=== PATIENT | female | born 1970 | race Caucasian/White ===

== ENCOUNTER 2019-08-18 13:27 | Emergency (ER) | payer MEDICAID, OTHER ==
[~2019-08-18] VITALS: Ht 167.6 cm; Wt 151.0 kg
[2019-08-18] MEDS ORDERED: METO50TA17 PO (14:37)
[2019-08-18] MEDS ORDERED: METO-467 PO (14:37)
[2019-08-18] MEDS ORDERED: PARO10TA85 PO (14:37)
[2019-08-18] MEDS ORDERED: LISI-600 PO (14:37)
[2019-08-18 14:45] VITALS: BP 136/89
== END 2019-08-18 14:46 | disposition home or self-care (01) ==
LOC: ER 13:31
DX: I10 Essential (primary) hypertension (principal); F32.9 Major depressive disorder, single episode, unspecified; Z76.0 Encounter for issue of repeat prescription; Z79.899 Other long term (current) drug therapy
CPT/HCPCS: 99283

== ENCOUNTER 2019-08-29 09:44 | Emergency (ER) | payer MEDICAID, OTHER ==
[~2019-08-29] VITALS: Ht 167.6 cm; Wt 150.0 kg
[~2019-08-29 09:44] MED LIST: LISI-600 PO; METO-467 PO; METO50TA17 PO; PARO10TA85 PO
[2019-08-29] MEDS ORDERED: BENZ-16 PO (11:36)
[2019-08-29] MEDS ORDERED: ONDA4TAB6 PO (11:36)
[2019-08-29] MEDS ORDERED: ALBU8.5H8 IH (11:36)
[2019-08-29] MEDS ORDERED: TAM75C PO (11:36)
[2019-08-29 12:14] VITALS: BP 138/73
== END 2019-08-29 11:54 | disposition home or self-care (01) ==
LOC: ER 09:45
DX: B34.9 Viral infection, unspecified (principal); R05 Cough; R51 Headache; J02.9 Acute pharyngitis, unspecified; M79.10 Myalgia, unspecified site; R53.83 Other fatigue; I10 Essential (primary) hypertension; F32.9 Major depressive disorder, single episode, unspecified; Z79.899 Other long term (current) drug therapy
CPT/HCPCS: 99283

== ENCOUNTER 2019-09-14 14:45 | Emergency (ER) | payer MEDICAID ==
[~2019-09-14] VITALS: Ht 167.6 cm; Wt 145.0 kg
[~2019-09-14 14:45] MED LIST changes: +ALBU8.5H8 IH; +BENZ-16 PO; +ONDA4TAB6 PO
[2019-09-14 15:50] LABS: BASOPHILS % (AUTO) 0.5 % (0-1); EOSINOPHILS # (AUTO) 0.1 X10'3 (0-0.9); EOSINOPHILS % (AUTO) 1.5 % (0-6); HEMATOCRIT 42.3 % (35.0-45.0); HEMOGLOBIN 14.6 g/dl (12.0-16.0); LYMPHOCYTES # (AUTO) 1.7 X10'3 (1.1-4.8); LYMPHOCYTES % (AUTO) 17.3 % (21-51); MEAN CORPUSCULAR HEMOGLOBIN 30.4 PG (27.0-31.0); MEAN CORPUSCULAR HGB CONC 34.5 g/dL (33.0-36.5); MEAN CORPUSCULAR VOLUME 88.3 FL (78-98); MEAN PLATELET VOLUME 7.5 FL (7.4-10.4); MONOCYTES # (AUTO) 0.8 X10'3 (0-0.9); MONOCYTES % (AUTO) 8.3 % (2-12); NEUTROPHILS # (AUTO) 7.2 X10'3 (1.8-7.7); NEUTROPHILS % (AUTO) 72.4 % (42-75); PLATELET COUNT 328 X10'3 (140-440); RED BLOOD COUNT 4.79 X10'6 (4.20-5.60); RED CELL DISTRIBUTION WIDTH 13.1 % (11.5-14.5); WHITE BLOOD COUNT 9.9 X10'3 (4.5-11.0)
[2019-09-14 16:04] LABS: ALANINE AMINOTRANSFERASE 32 U/L (12-78); ALBUMIN 3.6 G/DL (3.4-5.0); ALBUMIN/GLOBULIN RATIO 0.8 (1.1-1.5); ALKALINE PHOSPHATASE 70 IU/L (46-116); ANION GAP 7 (8-16); ASPARTATE AMINO TRANSFERASE 24 U/L (10-37); BILIRUBIN,TOTAL 1.3 MG/DL (0.1-1.0); BLOOD UREA NITROGEN 22 MG/DL (7-18); BUN/CREATININE RATIO 18.2 (6.6-38.0); CALCIUM 9.2 MG/DL (8.5-10.1); CHLORIDE 107 MMOL/L (99-107); CREATININE 1.21 MG/DL (0.40-0.90); GLUCOSE 131 MG/DL (70-104); SODIUM 142 MMOL/L (135-145); TOTAL CARBON DIOXIDE 27.7 MMOL/L (24-32); TOTAL PROTEIN 7.9 G/DL (6.4-8.2); eGFR 47 ML/MIN
[2019-09-14] MEDS ORDERED: normal saline 1000ML IV soln IVB ONE (16:50)
[2019-09-14 17:04] LABS: PARTIAL THROMBOPLASTIN TIME 25 SECONDS (22-32)
[2019-09-14 17:39] VITALS: BP 119/41
[2019-09-14] MEDS ORDERED: METO50TA17 PO (19:44)
[2019-09-14] MEDS ORDERED: LISI-600 PO (19:44)
[2019-09-14] MEDS ORDERED: PARO-62 PO (19:44)
== END 2019-09-14 20:05 | disposition home or self-care (01) ==
LOC: ER 14:45
DX: E86.0 Dehydration (principal); R42 Dizziness and giddiness; N17.9 Acute kidney failure, unspecified; I10 Essential (primary) hypertension; Z79.899 Other long term (current) drug therapy
CPT/HCPCS: 36415; 71045; 80053; 84484; 85025; 85610; 85730; 93005; 96360; 99285; J7030

== ENCOUNTER 2019-09-19 11:56 | Emergency (ER) | payer MEDICAID ==
[~2019-09-19] VITALS: Ht 167.6 cm; Wt 147.4 kg
[~2019-09-19 11:56] MED LIST changes: -BENZ-16 PO; -ONDA4TAB6 PO; +PARO-62 PO
[2019-09-19 12:10] VITALS: BP 150/81
--- NOTE | 2019-09-19 14:43 | NUR ---
PT GIVEN SPECIMEN CUP, AMBULATORY TO BATHROOM WITH STEADY GAIT TO PROVIDE SAMPLE PER ORDERS.
[2019-09-19 14:59] LABS: CLARITY,URINE CLOUDY (Clear); COLOR,URINE YELLOW (Yellow); GLUCOSE, URINE NEGATIVE (Neg); KETONES,URINE NEGATIVE (Neg); LEUKOCYTE ESTERASE ,URINE NEGATIVE (Neg); NITRITES, URINE NEGATIVE (Neg); OCCULT BLOOD,URINE NEGATIVE (Neg); PH,URINE 6.5 (4.8-8.0); PROTEIN,URINE NEGATIVE (Neg); URINE HCG NEGATIVE (NEG)
[2019-09-19 15:13] LABS: UA COLLECTION TYPE CLN CATCH MIDSTREAM
[2019-09-19 15:15] LABS: BACTERIA,URINE 1+ /HPF (Neg); MUCUS STRANDS MODERATE /LPF (Neg); RBC,URINE NONE SEEN /HPF (0-2); SQUAMOUS EPITHELIAL CELL,UR MODERATE /LPF (FEW); WBC,URINE 0-4 /HPF (0-4)
[2019-09-19 15:22] LABS: BASOPHILS % (AUTO) 0.5 % (0-1); EOSINOPHILS # (AUTO) 0.1 X10'3 (0-0.9); EOSINOPHILS % (AUTO) 1.4 % (0-6); HEMATOCRIT 41.1 % (35.0-45.0); HEMOGLOBIN 14.3 g/dl (12.0-16.0); LYMPHOCYTES # (AUTO) 1.9 X10'3 (1.1-4.8); LYMPHOCYTES % (AUTO) 24.6 % (21-51); MEAN CORPUSCULAR HEMOGLOBIN 30.8 PG (27.0-31.0); MEAN CORPUSCULAR HGB CONC 34.8 g/dL (33.0-36.5); MEAN CORPUSCULAR VOLUME 88.4 FL (78-98); MEAN PLATELET VOLUME 7.6 FL (7.4-10.4); MONOCYTES # (AUTO) 0.7 X10'3 (0-0.9); MONOCYTES % (AUTO) 8.5 % (2-12); PLATELET COUNT 287 X10'3 (140-440); RED BLOOD COUNT 4.65 X10'6 (4.20-5.60); RED CELL DISTRIBUTION WIDTH 13.5 % (11.5-14.5); WHITE BLOOD COUNT 7.7 X10'3 (4.5-11.0)
[2019-09-19 15:36] LABS: ALANINE AMINOTRANSFERASE 34 U/L (12-78); ALBUMIN 3.6 G/DL (3.4-5.0); ALBUMIN/GLOBULIN RATIO 0.8 (1.1-1.5); ALKALINE PHOSPHATASE 74 IU/L (46-116); ANION GAP 7 (8-16); ASPARTATE AMINO TRANSFERASE 15 U/L (10-37); BLOOD UREA NITROGEN 8 MG/DL (7-18); BUN/CREATININE RATIO 9.2 (6.6-38.0); CHLORIDE 105 MMOL/L (99-107); CREATININE 0.87 MG/DL (0.40-0.90); GLUCOSE 87 MG/DL (70-104); POTASSIUM 3.7 MMOL/L (3.5-5.1); SODIUM 144 MMOL/L (135-145); TOTAL CARBON DIOXIDE 31.6 MMOL/L (24-32); TOTAL PROTEIN 7.9 G/DL (6.4-8.2); eGFR 69 ML/MIN
[2019-09-19 15:38] LABS: CREATINE KINASE 62 U/L (26-192)
== END 2019-09-19 16:22 | disposition home or self-care (01) ==
LOC: ER 11:57
DX: J20.9 Acute bronchitis, unspecified (principal); B34.9 Viral infection, unspecified; I10 Essential (primary) hypertension; M54.5 Low back pain; F32.9 Major depressive disorder, single episode, unspecified; Z79.899 Other long term (current) drug therapy
CPT/HCPCS: 36415; 80053; 81001; 81025; 82550; 85025; 99283

== ENCOUNTER 2019-10-07 11:33 | Emergency (ER) | payer MEDICAID, OTHER ==
[~2019-10-07] VITALS: Ht 167.6 cm; Wt 144.0 kg
[2019-10-07] MEDS ORDERED: BENZ-16 PO (13:17)
[2019-10-07] MEDS ORDERED: ALBU8.5H8 IH (13:17)
[2019-10-07] MEDS ORDERED: PRED20TA PO (13:17)
[2019-10-07] MEDS ORDERED: AZIT250T83 PO (13:17)
[2019-10-07 13:53] VITALS: BP 146/92
== END 2019-10-07 13:56 | disposition home or self-care (01) ==
LOC: ER 11:33
DX: J20.9 Acute bronchitis, unspecified (principal); I10 Essential (primary) hypertension; F32.9 Major depressive disorder, single episode, unspecified; Z79.899 Other long term (current) drug therapy
CPT/HCPCS: 99283

== ENCOUNTER 2019-10-31 06:27 | Emergency (ER) | payer OTHER ==
[~2019-10-31] VITALS: Ht 167.6 cm; Wt 150.0 kg
[~2019-10-31 06:27] MED LIST changes: +BENZ-16 PO; -LISI-600 PO
[2019-10-31] MEDS ORDERED: PARO20TA6 PO (06:45)
[2019-10-31] MEDS ORDERED: LISI-600 PO (06:45)
[2019-10-31] MEDS ORDERED: METO50TA17 PO (06:45)
[2019-10-31 07:01] VITALS: BP 166/106
== END 2019-10-31 07:06 | disposition home or self-care (01) ==
LOC: ER 06:27
DX: I10 Essential (primary) hypertension (principal); F32.9 Major depressive disorder, single episode, unspecified; Z76.0 Encounter for issue of repeat prescription; Z79.899 Other long term (current) drug therapy
CPT/HCPCS: 99281

== ENCOUNTER 2019-11-23 17:47 | Emergency (ER) | payer SELFPAY ==
[~2019-11-23] VITALS: Ht 167.6 cm; Wt 124.8 kg
[~2019-11-23 17:47] MED LIST changes: +LISI-600 PO; +PARO20TA6 PO
[2019-11-23 17:48] VITALS: BP 178/78
[2019-11-23] MEDS ORDERED: HYDROcodone/acetaminophen 10/325mg tab PO ONE (18:30)
[2019-11-23] MEDS ORDERED: ondansetron 4mg rapidly disintigrating tab PO ONE (18:30)
[2019-11-23] MEDS ORDERED: IBUP-1984 PO (18:34)
== END 2019-11-23 19:10 | disposition home or self-care (01) ==
LOC: ER 17:48
DX: M25.561 Pain in right knee (principal); I10 Essential (primary) hypertension; M79.89 Other specified soft tissue disorders; F41.9 Anxiety disorder, unspecified; F32.9 Major depressive disorder, single episode, unspecified; Z79.899 Other long term (current) drug therapy
CPT/HCPCS: 29505; 73564; 99284